=== PATIENT | male | born 1970 | race Caucasian/White ===

== ENCOUNTER 2023-04-15 11:53 | Day surgery (SDC) | payer OTHER ==
[2023-04-14 09:33] VITALS: BMI 28.7
[2023-04-15] MEDS ORDERED: LACTATED RINGERS 1,000 ML IV SCH (13:53)
[2023-04-15 14:03] VITALS: TEMP 97.2
[2023-04-15] MEDS ORDERED: PROPOFOL 10 MG/ML 20 ML VIAL IV ONE (15:10)
--- NOTE | 2023-04-15 15:35 | P.PCN ---
Date of Procedure: 04/15/23 Procedure(s) Performed: BRIEF HISTORY: Patient is a 52-year-old pleasant white male scheduled for an elective colonoscopy as a part of screening for colon cancer. He also has history of recurrent sigmoid diverticulitis PROCEDURE PERFORMED: Colonoscopy with biopsy. PREOPERATIVE DIAGNOSIS: Screening for colon cancer. IV sedation per Anesthesia. PROCEDURE: After informed consent was obtained, the patient, was brought into the endoscopy unit. IV sedation was administered by Anesthesia under continuous monitoring. Digital rectal examination was normal. Initially the Olympus CF-160 flexible video colonoscope was then inserted in the rectum, gradually advanced into the cecum without any difficulty. Careful examination was performed as the scope was gradually being withdrawn. Ileocecal valve and the appendiceal orifice were visualized and appeared normal. Prep was excellent. Mucosa of the cecum, ascending colon, transverse colon, descending colon, sigmoid colon, and rectum appeared normal. 2 small polyps noted in the rectum measuring 3 mm in size which were removed by cold biopsy. Scattered sigmoid diverticulosis. Retroflexion was performed in the rectum and no lesions were seen. The patient tolerated the procedure well. IMPRESSION: 3 mm 2 rectal polyps status post cold biopsy Scattered sigmoid diverticulosis RECOMMENDATIONS: Findings of this examination were discussed with the patient as well as his family. He was advised to follow with the biopsy results. Continue with high-fiber diet.. Repeat colonoscopy in 5 years based on the biopsy results
[2023-04-15 15:52] VITALS: BP 141/87; PULSE 82; RESP 17
== END 2023-04-15 16:02 | disposition home or self-care (01) ==
LOC: ORWHC2ENDO 11:53
PROVIDERS: ATTEND Internal Medicine Gastroenterology
DX: Z12.11 Encounter for screening for malignant neoplasm of colon (principal); K63.5 Polyp of colon; K57.30 Diverticulosis of large intestine without perforation or abscess without bleeding; I10 Essential (primary) hypertension; E78.5 Hyperlipidemia, unspecified; Z79.899 Other long term (current) drug therapy; Z87.891 Personal history of nicotine dependence
CPT/HCPCS: 45380; J2704; 88305